=== PATIENT | female | born 1955 | race Caucasian/White ===

== ENCOUNTER → 2017-01-31 | Outpatient (CLI) | payer BC | END | disposition home or self-care (01) | LOC: EKG 10:53 | DX: Z01.810 Encounter for preprocedural cardiovascular examination (principal); N94.9 Unspecified condition associated with female genital organs and menstrual cycle | CPT/HCPCS: 93005 ==

== ENCOUNTER → 2018-02-27 | Outpatient (CLI) | payer OTHER ==
[~2018-02-27] VITALS: Ht 162.6 cm; Wt 73.0 kg
[~2018-02-27] MED LIST: CLONIDINE HCL0.1 MG PO; FENOFIBRATE134 M1 PO; FLEXERIL10 MG PO; HYDROCHLOROTHIA50 MG PO; HYOSCYAMINE0.125 MG PO; MACROBID100 MG PO; MYLANTA; NEXIUM40 MG PO; PEPTO BISMOL240 ML PO; PERCOCET 7.51 TABLET PO; PREDNISONE20 MG PO; PREMARIN VAGI42.5 GM VG; PROMETHAZINE12.5 M1 PO; VALIUM5 MG PO; VITAMIN D32000 UNI1 PO; ZYRTEC10 M3 PO
== END | disposition home or self-care (01) ==
LOC: AMB 08:09
DX: Z12.11 Encounter for screening for malignant neoplasm of colon (principal); D12.2 Benign neoplasm of ascending colon; D12.3 Benign neoplasm of transverse colon; D12.4 Benign neoplasm of descending colon; K57.30 Diverticulosis of large intestine without perforation or abscess without bleeding; K62.89 Other specified diseases of anus and rectum; K21.9 Gastro-esophageal reflux disease without esophagitis; E78.5 Hyperlipidemia, unspecified; K58.9 Irritable bowel syndrome, unspecified; R76.11 Nonspecific reaction to tuberculin skin test without active tuberculosis; Z90.49 Acquired absence of other specified parts of digestive tract; Z90.710 Acquired absence of both cervix and uterus; Z90.79 Acquired absence of other genital organ(s); Z90.722 Acquired absence of ovaries, bilateral; Z80.3 Family history of malignant neoplasm of breast; Z83.71 Family history of colonic polyps; Z82.69 Family history of other diseases of the musculoskeletal system and connective tissue; Z88.8 Allergy status to other drugs, medicaments and biological substances
CPT/HCPCS: 88305; J2250; J2405